=== PATIENT | female | born 2000 | race Caucasian/White ===

== ENCOUNTER 2025-03-01 12:23 | Emergency (ER) | payer OTHER ==
[2025-03-01] MEDS ORDERED: Ondansetron PF 4 MG/2 ML Vial ONE (13:48)
[2025-03-01 13:57] LABS: #Basophils 0.04 10x3/uL (0.0-0.2); #Eosinophils Less than 0.03 10x3/uL (0.0-0.5); #Monocytes 0.20 10x3/uL (0.0-1.1); #Neutrophils 10.74 10x3/uL (1.5-8.4); %Basophils 0.3 % (0.0-2.0); %Eosinophils 0.0 % (0.0-6.0); %Lymphocytes 7.0 % (18.0-47.0); %Monocytes 1.7 % (0.0-10.0); %Neutrophils 90.7 % (40.0-75.0); Hematocrit 41.0 % (34.9-44.5); Hemoglobin 13.6 g/dL (12.0-15.5); Mean Corpuscular Hemoglobin 28.3 pg (27.0-33.0); Mean Corpuscular Volume 85.4 fL (81.6-98.3); Platelet Count 317 10x3/uL (150-450); Red Blood Cell (RBC) Count 4.80 10x6/uL (3.90-5.03); White Blood Cell (WBC) Count 11.84 10x3/uL (3.5-10.5)
[2025-03-01 14:12] LABS: ALT (SGPT) 12 U/L (Less than 34); AST (SGOT) 20 U/L (11-34); Albumin 4.8 g/dL (3.1-4.5); Alkaline Phosphatase 66 U/L (40-110); Anion Gap 16 mmol/L (10-20); BUN (Urea Nitrogen) 11 mg/dL (7.0-18.7); Bilirubin, Total 1.1 mg/dL (0.3-1.2); Calc. Creatinine Clearance 0 mL/min (70-130); Calcium 9.4 mg/dL (7.8-10.44); Carbon Dioxide 19 mmol/L (22-29); Chloride 109 mmol/L (98-107); Globulin 2.7 g/dL (2.4-3.5); Glucose 110 mg/dL (70-105); Lipase 17 U/L (8-78); Potassium 3.5 mmol/L (3.5-5.1); Sodium 140 mmol/L (136-145)
[2025-03-01 14:24] LABS: Glucose, Urine (Dipstick) Normal (Negative); Leukocyte Negative (Negative); Protein, Urine (Dipstick) 30 mg/dl (Neg-Trace); Specific Gravity, Urine 1.015 (1.005-1.030)
[2025-03-01 14:26] LABS: Pregnancy Test - Urine (BHCG) Negative (Negative); Pregu Control Background? CLEAR/WHITE (CLR/WHITE); Pregu Control Bar Appear? YES (CONTROL BAR)
[2025-03-01 15:27] LABS: Bacteria/HPF 3+ HPF (None Seen); CAUTI Indications for Culture Pelvic or flank pain; RBC/HPF 0-3 HPF (0-3)
[2025-03-01 15:28] LABS: Mucous/LPF 4+ LPF (<2+)
[2025-03-01 15:31] LABS: Urine Culture Reflex No No
[2025-03-01] MEDS ORDERED: Ketorolac Tromethamine 30 MG (1 mL) VIAL ONE (15:36)
== END 2025-03-01 16:39 | disposition home or self-care (01) ==
LOC: CSHERS 12:23
DX: R11.2 Nausea with vomiting, unspecified (principal)
CPT/HCPCS: 36415; 80053; 81001; 81025; 83690; 85025; J1885; J2405; J2550